=== PATIENT | male | born 1960 | race Caucasian/White ===

== ENCOUNTER 2024-09-10 10:00 | Outpatient (OUT) | payer OTHER, SELFPAY | END 2024-09-10 10:01 | disposition home or self-care (01) | LOC: SLEEP 09-11 08:59 | PROVIDERS: PCP Psychiatry & Neurology Neurology; Visit Provider Psychiatry & Neurology Neurology | DX: G47.10 Hypersomnia, unspecified (principal); R06.83 Snoring | CPT/HCPCS: 95806 ==